=== PATIENT | female | born 1990 | race Two or more races ===

== ENCOUNTER 2017-05-21 22:20 | Inpatient (IN) | payer OTHER ==
[2017-05-21] VITALS (9 sets, daily range): BP systolic 134–161; BP diastolic 85–104
[~2017-05-21] VITALS: Ht 162.6 cm; Wt 61.0 kg
[2017-05-21] MEDS: LR 1,000 ML IV SCH (22:48)
[2017-05-21] MEDS ORDERED: LACTATED RINGER'S 1000 ML IV STA (22:48)
[2017-05-21] MEDS ORDERED: PRENTAB9 PO (22:52)
[2017-05-21 23:12] LABS: MEAN CORPUSCULAR HEMOGLOBIN 25.9 pg (27.0-33.0); MEAN CORPUSCULAR HGB CONC 32.7 g/dl (32.0-36.5); MEAN CORPUSCULAR VOLUME 79.3 fl (80.0-96.0); RED CELL DISTRIBUTION WIDTH 15.2 % (11.5-14.5)
[2017-05-21] MEDS ORDERED: FENTANYL 2MCG/ML ROPIVACAINE 0.2% IN 0.9% NACL 200ML IVBAG As Ordered ONE (23:33)
[2017-05-21] MEDS ORDERED: OXYTOCIN 30 UNITS IN 0.9% NaCl 500ML IV BAG (J2590) As Ordered ONE (23:34)
[2017-05-21 23:42] LABS: ALBUMIN 2.6 GM/DL (3.2-5.2); ALBUMIN/GLOBULIN RATIO 0.62 (1.00-1.93); ALKALINE PHOSPHATASE 243 U/L (45-117); ALT/SGPT 27 U/L (12-78); ANION GAP 12 MEQ/L (8-16); AST/SGOT 26 U/L (15-37); BILIRUBIN,TOTAL 0.5 MG/DL (0.2-1.0); BLOOD UREA NITROGEN 8 MG/DL (7-18); CALCIUM LEVEL 9.1 MG/DL (8.5-10.1); CARBON DIOXIDE LEVEL 22 MEQ/L (21-32); CHLORIDE LEVEL 104 MEQ/L (98-107); GLOMERULAR FILTRATION RATE > 60.0 (>60); GLUCOSE, FASTING 117 MG/DL (70-105); POTASSIUM SERUM 3.9 MEQ/L (3.5-5.1); SODIUM LEVEL 138 MEQ/L (136-145); TOTAL PROTEIN 6.8 GM/DL (6.4-8.2)
[2017-05-22] VITALS (26 sets, daily range): BP systolic 125–156; BP diastolic 65–101
[2017-05-22] MEDS ORDERED: ONDANSETRON 4MG/2ML VIAL (J2405) IV PRN (01:00)
[2017-05-22] MEDS ORDERED: NALOXONE INJ 0.4 MG/1 ML VIAL (J2310) IV PRN (01:00)
[2017-05-22] MEDS ORDERED: EPIDURAL/PCA KEYS XX PRN (01:00)
[2017-05-22] MEDS ORDERED: LACTATED RINGER'S 1000 ML IV PRN (01:00)
[2017-05-22] MEDS ORDERED: FENTANYL/ROPIVACAINE/NACL BAG 200 ML EPIDURAL SCH (01:00)
[2017-05-22] MEDS ORDERED: ePHEDrine SULFATE 25 MG/5 ML(5MG/ML) SYRINGE IV PRN (01:00)
[2017-05-22] MEDS ORDERED: EPIDURAL COMMENT XX SCH (01:00)
[2017-05-22] MEDS ORDERED: REFRIGERATOR IV KEYS XX PRN (01:00)
[2017-05-22] MEDS ORDERED: diphenhydrAMINE INJ 50MG/ML VIAL (J1200) IV PRN (01:00)
[2017-05-22] MEDS ORDERED: OXYTOCIN DRIP 30 UNITS in APPROPRIATE DILUENT 1 EA IV SCH (02:09)
[2017-05-22] MEDS ORDERED: IBUPROFEN 800 MG TAB PO PRN (02:15)
[2017-05-22] MEDS ORDERED: PROMETHAZINE 25 MG TAB PO PRN (02:15)
[2017-05-22] MEDS ORDERED: METHYLERGONOVINE MALEATE 0.2 MG TAB PO PRN (02:15)
[2017-05-22] MEDS ORDERED: DOCUSATE SODIUM 100 MG CAP PO PRN (02:15)
[2017-05-22] MEDS ORDERED: ACETAMINOPHEN 500 MG TAB PO PRN (02:15)
[2017-05-22] MEDS ORDERED: MEASLES,MUMPS,RUBELLA VACCINE INJ (MMR-II) (90707) SC SCH (02:15)
[2017-05-22] MEDS ORDERED: MOM 30ML SUSPENSION UDC PO PRN (02:15)
[2017-05-22] MEDS ORDERED: DIBUCAINE 1% OINTMENT 30GM TOP PRN (02:15)
[2017-05-22] MEDS ORDERED: RHOGAM 300 MCG (1500 IU) INJ (J2790) IM SCH (02:15)
[2017-05-22 02:35] LABS: CORD GAS ABE V -4.9; CORD GAS HCO3 V 21.1 MEQ/L; CORD GAS O2 SAT V 84.5 %; CORD GAS PCO2 V 42.3 mmHg; CORD GAS PH V 7.315 UNITS; CORD GAS PO2 V 44.3 mmHg; CORD GAS SBC V 20.1 MEQ/L; CORD GAS TCO2 V 22.4 MEQ/L
[2017-05-22] MEDS: LR 1,000 ML IV SCH ×4 (06:48→19:42)
[2017-05-22] MEDS: PRENATAL VITAMINS CHEWABLE TABLET PO SCH (07:49)
[2017-05-23 02:00] VITALS: BP 133/69
[2017-05-23 06:27] VITALS: BP 128/88
--- NOTE | 2017-05-23 06:58 | IPNPDOC ---
Text Note Date of Service The patient was seen on 05/23/17. NOTE PPD1 prog note, pre-e w/o severe features States feeling well, no complaints. No GARCIA, vis changes. No heavy VB. Pain controlled. Voiding, ambulatory. Bonding well and bottle feeding well. VSSAF CTAB RRR Ut at U-1, firm Ext no CCE DTR's 1+, no clonus a/p: Doing well. Routine PP care. Liekly d/c tomorrow Sessions VS,Mirna, I+O VSMirna I+O Vital Signs Date Time Temp Pulse Resp B/P (MAP) Pulse Ox O2 Delivery O2 Flow Rate FiO2 05/23/17 06:27 99.0 98 16 128/88 (101) I&O- Last 24 Hours up to 6 AM 05/23/17 06:00 Intake Total 960 ml Balance 960 ml SESSIONS,JONO Smith MD May 23, 2017 06:57
[2017-05-23] MEDS: PRENATAL VITAMINS CHEWABLE TABLET PO SCH (09:04)
[2017-05-23] MEDS: LR 1,000 ML IV SCH ×2 (09:05→22:48)
[2017-05-23 10:00] VITALS: BP 126/80
[2017-05-23 18:00] VITALS: BP 133/89
[2017-05-23 22:50] VITALS: BP 134/91
[2017-05-24 06:13] VITALS: BP 133/77
[2017-05-24] MEDS: LR 1,000 ML IV SCH (06:48)
[2017-05-24] MEDS ORDERED: NUPE1OIN2 TOP (07:32)
[2017-05-24] MEDS ORDERED: IBUP1TAB7 OR (07:32)
[2017-05-24] MEDS ORDERED: TYLE500T78 OR (07:32)
[2017-05-24] MEDS ORDERED: MOM30SS OR (07:32)
[2017-05-24] MEDS ORDERED: COLA100C5 OR (07:32)
[2017-05-24] MEDS: PRENATAL VITAMINS CHEWABLE TABLET PO SCH (08:18)
--- NOTE | 2017-05-24 19:14 | DSES ---
DATE OF ADMISSION: 05/21/2017 DATE OF DISCHARGE: 05/24/2017 This lady is 26-year-old 3 now, para 3, admitted in active labor at 39 and 3 weeks gestation. Group B streptococcus (GBS) negative. She had a spontaneous vaginal delivery, epidural, female, 7 pounds 7 ounces, 3364 grams. scores of 8 and 9 at one and five minutes, respectively. On her second day we discussed was cystitis, mastitis, metritis, cellulitis, diet, exercise pain management, perineal, breast, and wound care. Her baby's arterial gases were cancelled. Her venous gases were 7.3, base excess -4.9. Her hemoglobin was 10.5, hematocrit 32.0, platelets 156. Her chemistry was ordered because she had elevated blood pressures in the last , and her liver enzymes were normal. Creatinine/urine spot ratio was within normal limits. On discharge, her blood pressure was 133/77, respirations 18, pulse 74, and temperature is 97.3. The rest examination is unremarkable. She was neurologic complete. Normocephalic, atraumatic. Neck: Full range of motion. Pupils equal and reactive to light. Distal pulses symmetric. No evidence of deep vein thrombosis (DVT) pulmonary embolism (PE), or superficial phlebitis. No edema. Reflexes were normal. Chest was clear bilaterally to bases. No wheezes or rhonchi. No costovertebral angle (CVA) tenderness. Uterus 2 below. Four-quadrant bowel sounds are noted. Perineum was intact. She has no rashes, lesions, or pruritus. No arthralgia, myalgia. No complaints of cough, wheezes, shortness of breath, or dyspnea on the exertion. No chest pain. No bleeding. Neurologic complete. No incontinency, urgency, or frequency. No nausea, vomiting, diarrhea, constipation. No diabetic issues. Her past [employer] and medical history are unremarkable. FAMILY HISTORY: Noncontributory. SOCIAL HISTORY: She does not smoke, drink, abuse drugs. She is . There is no domestic violence. In summary, we have a term gestation, active labor, delivered a live- female . Medications were given at discharge. Has a 6-week checkup.
== END 2017-05-24 11:30 | disposition home or self-care (01) | DRG 775 ==
LOC: M LDO 22:20 → M LDI 22:42 → M OBS 05-22 04:27
PROVIDERS: ADMIT Student in an Organized Health Care Education/Training Program; ATTEND Student in an Organized Health Care Education/Training Program
PROC: 10E0XZZ Delivery of Products of Conception, External Approach (ICD-10-PCS; principal; 2017-05-22)
PROC: 10907ZC Drainage of Amniotic Fluid, Therapeutic from Products of Conception, Via Natural or Artificial Opening (ICD-10-PCS; 2017-05-22)
DX: O69.82X0 Labor and delivery complicated by other cord entanglement, without compression, not applicable or unspecified (principal); O14.94 Unspecified pre-eclampsia, complicating childbirth; O77.0 Labor and delivery complicated by meconium in amniotic fluid; O76 Abnormality in fetal heart rate and rhythm complicating labor and delivery; Z3A.39 39 weeks gestation of pregnancy; Z37.0 Single live birth